=== PATIENT | female | born 2000 | race Caucasian/White ===

== ENCOUNTER 2023-07-28 12:00 | Outpatient (RCR) | payer OTHER, SELFPAY | END 2023-10-04 14:46 | disposition home or self-care (01) | PROVIDERS: Visit Provider Family Medicine | DX: M54.50 Low back pain, unspecified (principal); M62.81 Muscle weakness (generalized); M62.830 Muscle spasm of back; Z51.89 Encounter for other specified aftercare | CPT/HCPCS: 97110; 97140; 97162; 97535 ==